=== PATIENT | male | born 1945 ===

== ENCOUNTER 2019-03-11 04:50 | Emergency (ER) | payer MEDICARE ==
[~2019-03-11] VITALS: Ht 167.6 cm; Wt 93.0 kg
[~2019-03-11 04:50] MED LIST: CIPR500 PO; CLOB.05TC TOP; FINA5 PO; LORA10 PO; NITR2TO30; OXYACE5T PO; PRAZ1 PO; PSYL5.85P PO; SENN187 PO; TAMS.4ER PO
[2019-03-11 05:26] LABS: BASOPHILS ABSOLUTE AUTO 0.03 K/mm3 (0.00-0.23); BASOPHILS PERCENT AUTO 0 % (0-2); EOSINOPHILS ABSOLUTE AUTO 0.02 K/mm3 (0.00-0.68); EOSINOPHILS PERCENT AUTO 0 % (0-6); Hematocrit 49.4 % (37.0-53.0); Hemoglobin 16.8 g/dL (13.5-17.5); IMMATURE GRAN ABSOLUTE AUTO 0.05 K/mm3 (0.00-0.10); IMMATURE GRAN PERCENT AUTO 1 % (0-1); LYMPHOCYTES PERCENT AUTO 9 % (21-46); MONOCYTES ABSOLUTE AUTO 0.62 K/mm3 (0.16-1.47); MONOCYTES PERCENT AUTO 6 % (4-13); Mean Corpuscular HGB 32.9 pg (26.0-34.0); Mean Corpuscular Volume 97 fL (80-100); Mean Platelet Volume 11.7 fL (9.1-12.4); NEUTROPHILS ABSOLUTE AUTO 8.04 K/mm3 (1.96-9.15); NEUTROPHILS PERCENT AUTO 83 % (41-73); Platelet Count 103 K/mm3 (150-400); RDW Coefficient Variation 12.9 % (11.7-14.2); RDW Standard Deviation 46.2 fL (35.1-46.3); White Blood Cell Count 9.66 K/mm3 (4.00-11.30)
[2019-03-11 05:41] LABS: Alanine Aminotransfer (ALT/SGP 45 U/L (12-78); Albumin, Blood 3.7 g/dL (3.4-5.0); Albumin/Globulin Ratio 0.9 (0.8-1.8); Alk Phos 70 U/L (50-136); Anion Gap 7 mmol/L (6-16); Aspartate Aminotrans (AST/SGOT 15 U/L (12-37); Bilirubin, Total 2.6 mg/dL (0.1-1.0); Blood Urea Nitrogen 16 mg/dL (8-24); CO2, Blood 25 mmol/L (21-32); Calcium, Blood 8.6 mg/dL (8.5-10.1); Chloride, Blood 103 mmol/L (98-108); Globulin, Blood 3.9 g/dL (2.2-4.0); Glomerular Filtration Rate >60 (60-); Glucose, Blood 107 mg/dL (70-99); Potassium, Blood 3.6 mmol/L (3.5-5.5); Sodium, Blood 135 mmol/L (136-145); Total Protein, Blood 7.6 g/dL (6.4-8.2)
[2019-03-11] MEDS ORDERED: LEVO750 PO (06:00)
[2019-03-11] MEDS ORDERED: BENZ100A PO (06:01)
== END 2019-03-11 07:57 | disposition home or self-care (01) ==
LOC: ER 04:50
PROVIDERS: Emergency Medicine
DX: J18.9 Pneumonia, unspecified organism (principal); Z87.891 Personal history of nicotine dependence; Z79.899 Other long term (current) drug therapy
CPT/HCPCS: 71046; 80053; 85025; 93005; 93010; 96365; 96366; 99284-25; J1956

== ENCOUNTER 2023-04-02 10:50 | Day surgery (SDC) | payer OTHER ==
[~2023-04-02] VITALS: Ht 165.1 cm; Wt 84.6 kg
[~2023-04-02 10:50] MED LIST changes: +BENZ100A PO; +LEVO750 PO
[2023-04-02] MEDS ORDERED: METF500 (11:22)
[2023-04-02] MEDS ORDERED: OTEZLA30 MG (11:23)
[2023-04-02] MEDS ORDERED: Prednisone10 MG (11:23)
[2023-04-02] MEDS ORDERED: VITAMIN D31000 UNI1 (11:24)
[2023-04-02] MEDS ORDERED: FISH OIL 1,2001 EAC7 (11:24)
[2023-04-02 14:10] VITALS: BP 100/74
== END 2023-04-02 14:00 | disposition home or self-care (01) ==
LOC: ORSCSDS 10:50
PROVIDERS: Internal Medicine Gastroenterology
PROC: 0DBL8ZX Excision of Transverse Colon, Via Natural or Artificial Opening Endoscopic, Diagnostic (ICD-10-PCS; principal; 2023-04-02 12:15)
PROC: 0DBK8ZX Excision of Ascending Colon, Via Natural or Artificial Opening Endoscopic, Diagnostic (ICD-10-PCS; principal; 2023-04-02 12:15)
DX: Z12.11 Encounter for screening for malignant neoplasm of colon (principal); Z86.010 Personal history of colon polyps; D12.3 Benign neoplasm of transverse colon; D12.2 Benign neoplasm of ascending colon; K57.30 Diverticulosis of large intestine without perforation or abscess without bleeding; K64.8 Other hemorrhoids; Z85.118 Personal history of other malignant neoplasm of bronchus and lung; G47.33 Obstructive sleep apnea (adult) (pediatric); E11.9 Type 2 diabetes mellitus without complications; F43.10 Post-traumatic stress disorder, unspecified; Z87.891 Personal history of nicotine dependence
CPT/HCPCS: 82947; 88305; J2405; J2704; J7120